=== PATIENT | male | born 1985 | race Caucasian/White ===

== ENCOUNTER 2023-05-24 10:20 | Emergency (ER) | payer SELFPAY ==
[~2023-05-24] VITALS: Ht 165.1 cm; Wt 61.0 kg
[2023-05-24 10:31] VITALS: BP 127/85; PULSE 95; RESP 16; TEMP 97.9; O2SAT 100
== END 2023-05-24 11:35 | disposition home or self-care (01) ==
LOC: ER 10:20
DX: S01.01XD Laceration without foreign body of scalp, subsequent encounter (principal); X58.XXXD Exposure to other specified factors, subsequent encounter
CPT/HCPCS: 99281